=== PATIENT | male | born 1990 | race Caucasian/White ===

== ENCOUNTER 2017-09-27 20:22 | Emergency (ER) | payer OTHER ==
--- NOTE | 2017-09-27 20:29 | PDOC ---
Rapid Medical Evaluation Time Seen by Provider: 09/27/17 20:22 Medical Evaluation: 09/27/17 20:23 I have performed a brief in-person evaluation of this patient. The patient presents with a chief complaint of: BACK PAIN s/p malik hammer machine today at work Pertinent physical exam findings: + paraspinal tenderness in LS spine I have ordered the following:none The patient will proceed to the ED for further evaluation.
[2017-09-27 20:38] VITALS: BP 140/90; PULSE 67; TEMP 98; BMI 30.1
--- NOTE | 2017-09-27 22:37 | PDOC ---
History of Present Illness - General Chief Complaint: Back Pain Stated Complaint: PAIN Time Seen by Provider: 09/27/17 20:22 History Source: Patient - History of Present Illness Initial Comments: 09/27/17 23:58 26 year old male c/o lower back pain while working with a malik hammer at work patient made a turn to the left and felt a pull to lower back at 4.30 pm. patient since have been having lower back pain worse with movement. no saddle anesthesia, no incontinence of bowel and urine. Past History - Past Medical History Allergies/Adverse Reactions: Allergies Allergy/AdvReac Type Severity Reaction Status Date / Time No Known Allergies Allergy Verified 09/27/17 23:41 Home Medications: Ambulatory Orders Cyclobenzaprine HCl [Flexeril 10 mg] 10 mg PO TID PRN #14 tablet 09/28/17 Ibuprofen 600 mg PO QID PRN #20 tablet 09/28/17 - Suicide/Smoking/Psychosocial Hx Smoking History: Never smoked Hx Alcohol Use: No Drug/Substance Use Hx: No Review of Systems - Review of Systems Able to Perform ROS?: Yes Is the patient limited Japanese proficient: No Constitutional: No: Symptoms Reported, See HPI, Chills, Diaphoresis, Fever, Loss of Appetite, Malaise, Night Sweats, Weakness, Weight Stable, Unintentional Wgt. Loss, Unexplained wgt Loss, Other Musculoskeletal: Yes: Back Pain. No: Symptoms Reported, See HPI, Gout, Joint Pain, Joint Swelling, Muscle Pain, Muscle Weakness, Neck Pain, Joint Stiffness, Other Neurological: No: Symptoms reported, See HPI, Headache, Numbness, Paresthesia, Pre-Existing Deficit, Seizure, Tingling, Tremors, Weakness, Unsteady Gait, Ataxia, Dizziness, Other *Physical Exam - Vital Signs Last Vital Signs Temp Pulse Resp BP Pulse Ox 98 F 67 20 140/90 99 09/27/17 20:30 09/27/17 20:30 09/27/17 20:30 09/27/17 20:30 09/27/17 20:30 - Physical Exam General Appearance: Yes: Appropriately Dressed Gastrointestinal/Abdominal: positive: Normal Bowel Sounds, Soft Musculoskeletal: positive: Normal Inspection, Decreased Range of Motion, Muscle Spasm. negative: Vertebral Tenderness Extremity: positive: Normal Capillary Refill, Normal Inspection, Normal Range of Motion Integumentary: positive: Normal Color, Dry, Warm Neurologic: positive: supervisor crack off II-XII NML intact, Fully Oriented, Alert, Normal Mood/ Affect *DC/Admit/Observation/Transfer Diagnosis at time of Disposition: Musculoskeletal back pain - Discharge Dispostion Disposition: HOME - Prescriptions Prescriptions: Cyclobenzaprine HCl [Flexeril 10 mg] 10 mg PO TID PRN #14 tablet PRN Reason: Muscle Spasms Ibuprofen 600 mg PO QID PRN #20 tablet PRN Reason: Back Pain - Referrals Referrals: Roger Ovalle MD [Staff Physician] - - Patient Instructions Printed Discharge Instructions: DI for Low Back Pain Additional Instructions: apply ice/ heat to the area, take ibuprofen 600 mg every 6 hours take Flexeril as prescribed. 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 - Post Discharge Activity Forms/Work/School Notes: Back to Work
[2017-09-27] MEDS ORDERED: KETOROLAC TROMETHAMINE 30 MG/1 ML VIAL IM ONE (23:07)
[2017-09-27] MEDS ORDERED: CYCLOBENZAPRINE HCL 10 MG TABLET (FP) ONE (23:37)
[2017-09-28] MEDS ORDERED: CYCLOBENZAPRINE HCL 5 MG TABLET PO ONE (00:15)
== END 2017-09-28 00:38 | disposition home or self-care (01) ==
LOC: JER 20:22
PROC: 3E0233Z Introduction of Anti-inflammatory into Muscle, Percutaneous Approach (ICD-10-PCS; principal; 2017-09-27)
DX: S39.82XA Other specified injuries of lower back, initial encounter (principal); W31.89XA Contact with other specified machinery, initial encounter; Y93.89 Activity, other specified; Y92.89 Other specified places as the place of occurrence of the external cause; Y99.0 Civilian activity done for income or pay
CPT/HCPCS: 99281-25